=== PATIENT | female | born 1965 | race Two or more races ===

== ENCOUNTER 2025-01-16 21:12 | Inpatient (IN) | payer MEDICAID, OTHER ==
[~2025-01-16] VITALS: Ht 152.4 cm; Wt 120.1 kg
[2025-01-16] MEDS ORDERED: HYDR12.54 PO (22:06)
[2025-01-16] MEDS ORDERED: LISI40TA9 PO (22:06)
[2025-01-16] MEDS: HydrALAZINE HCL 20 MG/ML VIAL IVP ONE (22:28)
[2025-01-16 22:45] LABS: BASOPHILS % (AUTO) 0.8 % (0.0-2.0); EOSINOPHILS % (AUTO) 3.7 % (1.0-6.0); HEMATOCRIT 36.3 % (36-46); LYMPHOCYTES # (AUTO) 1.9 K/uL (1.0-4.8); LYMPHOCYTES % (AUTO) 37.8 % (22.0-44.0); MEAN CORPUSCULAR VOLUME 88 fL (80-100); MONOCYTES # (AUTO) 0.4 K/uL (0.1-1.0); MONOCYTES % (AUTO) 7.3 % (2.0-9.0); NEUTROPHILS # (AUTO) 2.6 K/uL (1.8-7.7); NEUTROPHILS % (AUTO) 50.4 % (40.0-70.0); PLATELET COUNT (AUTO) 262 K/uL (150-450); RED BLOOD CELL COUNT(AUTO) 4.13 MIL/uL (4.00-5.20); RED CELL DISTRIBUTION WIDTH 13.7 % (11.5-14.5); WHITE BLOOD COUNT (AUTO) 5.1 K/uL (4.5-11.0)
[2025-01-16 22:53] LABS: B-TYPE NATRIURETIC PEPTIDE 167 pg/mL (0-100)
[2025-01-16 22:59] LABS: ANION GAP 3 mmol/L (8-16); CALCIUM, TOTAL 8.4 mg/dL (8.8-10.5); CARBON DIOXIDE 34 mmol/L (22-29); CHLORIDE 104 mmol/L (98-107); CREATININE 1.37 mg/dL (0.60-1.30); GLOMERULAR FILTR. RATE CALC 39 mL/min (>60); GLUCOSE,RANDOM 98 mg/dL (70-110); POTASSIUM 3.8 mmol/L (3.5-5.1); SODIUM SERUM 141 mmol/L (136-145); UREA NITROGEN, BLOOD 24 mg/dL (7-18)
[2025-01-16] MEDS: ACETAMINOPHEN 500 MG TABLET PO ONE (23:01)
[2025-01-16] MEDS: CefTRIAXone 1 GM/DEXTROSE 50 ML IV ONE (23:02)
[2025-01-16 23:11] LABS: ALANINE AMINOTRANSFERASE 18 U/L (12-78); ALBUMIN 1.4 g/dL (3.4-5.0); ALKALINE PHOSPHATASE 73 U/L (46-116); ASPARTATE AMINOTRANSFERASE 24 U/L (15-37); BILIRUBIN,TOTAL 0.2 mg/dL (0.1-1.0); CREATINE KINASE, TOTAL ONLY 137 U/L (26-192); TOTAL PROTEIN, SERUM 5.9 g/dL (6.4-8.2); TROPONIN I-HIGH SENSITIVITY 19 ng/L (<51)
[2025-01-16] MEDS ORDERED: ONDANSETRON HCL 4 MG/2 ML VIAL IVP PRN (23:30)
[2025-01-16] MEDS: HEPARIN SODIUM,PORCINE 5,000 UNITS/ML VIAL SQ SCH (23:37)
[2025-01-16] MEDS: ISOSORBIDE DINITRATE 10 MG TABLET PO SCH (23:38)
[2025-01-16] MEDS: AZITHROMYCIN 500 MG/NS 250 ML IV ONE (23:38)
[2025-01-16] MEDS: LABETALOL HCL 100 MG TABLET PO SCH (23:39)
[2025-01-16 23:46] LABS: APPEARANCE,URINE CLEAR (CLEAR); BILIRUBIN,URINE NEGATIVE (NEGATIVE); COLOR,URINE COLORLESS (YELLOW); GLUCOSE, URINE (UA) TRACE mg/dL (NEGATIVE); KETONES,URINE NEGATIVE (NEGATIVE); LEUKOCYTE ESTERASE ,URINE NEGATIVE (NEGATIVE); NITRATE,URINE NEGATIVE (NEGATIVE); OCCULT BLOOD,URINE MODERATE (NEGATIVE); PROTEIN,URINE >600,SEE CONFIRM mg/dL (NEGATIVE); UROBILINOGEN,URINE <=1.0 mg/dL (<=1.0)
[2025-01-17] VITALS (7 sets, daily range): BP systolic 113–143; BP diastolic 65–94; PULSE 67–86; RESP 18–20; TEMP 97–98.6; O2SAT 94–99
[2025-01-17 00:30] LABS: BACTERIA,URINE Few /HPF (None Seen); SQUAMOUS EPITHELIAL CELL,UR Few /LPF (None Seen); SULFOSALICYLIC ACID,URINE 2+ (Negative); WBC,URINE 0-2 /HPF (0-5)
[2025-01-17] MEDS: FUROSEMIDE 20 MG/2 ML VIAL IVP ONE (01:15)
[2025-01-17 06:30] LABS: EOSINOPHILS % (AUTO) 1.2 % (1.0-6.0); HEMATOCRIT 33.6 % (36-46); HEMOGLOBIN 11.1 g/dL (12.0-16.0); LYMPHOCYTES # (AUTO) 1.2 K/uL (1.0-4.8); MEAN CORPUSCULAR HEMOGLOBIN 29.3 pg (26.0-34.0); MEAN CORPUSCULAR VOLUME 89 fL (80-100); MONOCYTES # (AUTO) 0.2 K/uL (0.1-1.0); MONOCYTES % (AUTO) 3.9 % (2.0-9.0); NEUTROPHILS # (AUTO) 3.6 K/uL (1.8-7.7); NEUTROPHILS % (AUTO) 70.9 % (40.0-70.0); PLATELET COUNT (AUTO) 253 K/uL (150-450); RED BLOOD CELL COUNT(AUTO) 3.79 MIL/uL (4.00-5.20); RED CELL DISTRIBUTION WIDTH 13.7 % (11.5-14.5); WHITE BLOOD COUNT (AUTO) 5.1 K/uL (4.5-11.0)
[2025-01-17 06:49] LABS: CALCIUM, TOTAL 7.9 mg/dL (8.8-10.5); CREATININE 1.21 mg/dL (0.60-1.30); MAGNESIUM 2.1 mg/dL (1.80-2.40); POTASSIUM 3.4 mmol/L (3.5-5.1)
[2025-01-17] MEDS: ACETAMINOPHEN 325 MG TABLET PO PRN (08:29)
[2025-01-17] MEDS: AZITHROMYCIN 250 MG TABLET PO SCH (11:39)
[2025-01-17] MEDS: POTASSIUM CHLORIDE 20 MEQ ER TABLET PO ONE (14:31)
[2025-01-17] MEDS ORDERED: POTASSIUM CHL 10 MEQ/WATER 50 ML IV PRN (20:15)
[2025-01-17] MEDS: LISINOPRIL 20 MG TABLET PO SCH (20:25)
[2025-01-17] MEDS: POTASSIUM CHLORIDE 20 MEQ ER TABLET PO PRN (20:25)
[2025-01-17] MEDS ORDERED: SODIUM CHLORIDE 0.9% 250 ML IV ONE (22:52)
[2025-01-17] MEDS: CefTRIAXone 1 GM/DEXTROSE 50 ML IV SCH (23:41)
[2025-01-18 03:49] VITALS: BP 147/76; PULSE 68; RESP 18; TEMP 98; O2SAT 95
[2025-01-18 04:07] LABS: HEPATITIS C AB (EIA) Non Reactive (Non Reactive)
[2025-01-18 07:23] LABS: BASOPHILS % (AUTO) 0.8 % (0.0-2.0); EOSINOPHILS % (AUTO) 3.8 % (1.0-6.0); HEMATOCRIT 34.5 % (36-46); HEMOGLOBIN 11.3 g/dL (12.0-16.0); LYMPHOCYTES # (AUTO) 1.7 K/uL (1.0-4.8); LYMPHOCYTES % (AUTO) 35.2 % (22.0-44.0); MEAN CORPUSCULAR HEMOGLOBIN 28.8 pg (26.0-34.0); MEAN CORPUSCULAR HGB CONC 32.7 G/dL (31.0-37.0); MEAN CORPUSCULAR VOLUME 88 fL (80-100); MONOCYTES # (AUTO) 0.3 K/uL (0.1-1.0); MONOCYTES % (AUTO) 6.3 % (2.0-9.0); NEUTROPHILS # (AUTO) 2.5 K/uL (1.8-7.7); NEUTROPHILS % (AUTO) 53.9 % (40.0-70.0); PLATELET COUNT (AUTO) 236 K/uL (150-450); RED BLOOD CELL COUNT(AUTO) 3.91 MIL/uL (4.00-5.20); RED CELL DISTRIBUTION WIDTH 14.2 % (11.5-14.5); WHITE BLOOD COUNT (AUTO) 4.7 K/uL (4.5-11.0)
[2025-01-18 07:33] VITALS: BP 147/76; PULSE 71; RESP 19; TEMP 98.1; O2SAT 94
[2025-01-18 07:55] LABS: ANION GAP 7 mmol/L (8-16); CARBON DIOXIDE 27 mmol/L (22-29); CHLORIDE 107 mmol/L (98-107); CHOL/HDL RATIO 5.2 (3.9-5.7); CHOLESTEROL 233 mg/dL (131-200); CREATININE 1.11 mg/dL (0.60-1.30); GLOMERULAR FILTR. RATE CALC 50 mL/min (>60); GLUCOSE,RANDOM 97 mg/dL (70-110); HDL CHOLESTEROL 45 mg/dL (40-60); LDL CHOL (CALC.) 135 mg/dL (0-130); POTASSIUM 3.8 mmol/L (3.5-5.1); SODIUM SERUM 141 mmol/L (136-145); TRIGLYCERIDES 263 mg/dL (15-150); TROPONIN I-HIGH SENSITIVITY 19 ng/L (<51); UREA NITROGEN, BLOOD 23 mg/dL (7-18)
[2025-01-18 08:01] LABS: HEMOGLOBIN A1C 5.6 % (3.8-5.6)
[2025-01-18] MEDS: ASPIRIN 81 MG DR TABLET PO SCH (08:21)
[2025-01-18] MEDS: AmLODIPine BESYLATE 5 MG TABLET PO SCH (10:02)
[2025-01-18] MEDS: ATORVASTATIN CALCIUM 40 MG TABLET PO SCH (10:02)
[2025-01-18 11:33] VITALS: BP 187/86; PULSE 81; RESP 19; TEMP 98.4; O2SAT 94
[2025-01-18] MEDS: HydrALAZINE HCL 20 MG/ML VIAL IVP PRN (11:33)
[2025-01-18] MEDS ORDERED: ACET650S24 PR (13:12)
[2025-01-18] MEDS ORDERED: ACET-2247 PO (13:13)
[2025-01-18] MEDS ORDERED: ATOR20TA PO (13:14)
[2025-01-18] MEDS ORDERED: ASPI-1450 PO (13:14)
[2025-01-18] MEDS ORDERED: CALC-761 PO (13:16)
[2025-01-18] MEDS ORDERED: CLOP75TA60 PO (13:16)
[2025-01-18] MEDS ORDERED: CRAN425C6 PO (13:18)
[2025-01-18] MEDS ORDERED: BISA10SU11 PR (13:19)
[2025-01-18] MEDS ORDERED: FERR220E10 PO (13:21)
[2025-01-18] MEDS ORDERED: LACT1CAP70 PO (13:26)
[2025-01-18] MEDS ORDERED: METO25 PO (13:30)
[2025-01-18] MEDS ORDERED: LACT10SO9 PO (13:30)
[2025-01-18] MEDS ORDERED: LANS15TA13 PO (13:31)
[2025-01-18] MEDS ORDERED: EPOE10006 IVP (13:33)
[2025-01-18] MEDS ORDERED: PANT-31 PO (13:36)
[2025-01-18] MEDS ORDERED: FOLI0.8T54 PO (13:36)
[2025-01-18] MEDS ORDERED: SENN-376 PO (13:38)
[2025-01-18] MEDS ORDERED: SODI650T33 PO (13:40)
[2025-01-18 16:02] VITALS: BP 139/80; PULSE 75; RESP 18; TEMP 98.1; O2SAT 97
[2025-01-18 19:38] VITALS: BP 149/70; PULSE 78; RESP 19; TEMP 98.3; O2SAT 97
[2025-01-18 23:16] VITALS: BP 126/64; PULSE 76; RESP 19; TEMP 98.3; O2SAT 93
[2025-01-19 03:15] VITALS: BP 135/72; PULSE 71; RESP 18; TEMP 98.1; O2SAT 96
[2025-01-19 05:48] LABS: BASOPHILS % (AUTO) 1.2 % (0.0-2.0); EOSINOPHILS % (AUTO) 5.3 % (1.0-6.0); HEMATOCRIT 34.6 % (36-46); HEMOGLOBIN 11.5 g/dL (12.0-16.0); LYMPHOCYTES # (AUTO) 1.4 K/uL (1.0-4.8); MEAN CORPUSCULAR HEMOGLOBIN 29.5 pg (26.0-34.0); MEAN CORPUSCULAR HGB CONC 33.2 G/dL (31.0-37.0); MEAN CORPUSCULAR VOLUME 89 fL (80-100); MONOCYTES # (AUTO) 0.3 K/uL (0.1-1.0); MONOCYTES % (AUTO) 7.2 % (2.0-9.0); NEUTROPHILS % (AUTO) 50.3 % (40.0-70.0); PLATELET COUNT (AUTO) 238 K/uL (150-450); RED CELL DISTRIBUTION WIDTH 14.3 % (11.5-14.5); WHITE BLOOD COUNT (AUTO) 3.9 K/uL (4.5-11.0)
[2025-01-19 06:02] LABS: CALCIUM, TOTAL 8.3 mg/dL (8.8-10.5); CREATININE 1.07 mg/dL (0.60-1.30)
[2025-01-19 08:00] VITALS: BP 175/89; PULSE 96; RESP 18; TEMP 98.1; O2SAT 96
[2025-01-19 11:59] VITALS: BP 145/87; PULSE 68; RESP 19; TEMP 98.2; O2SAT 99
[2025-01-19] MEDS ORDERED: AMLO-257 PO (13:17)
[2025-01-19] MEDS ORDERED: AMOX-457 PO (13:17)
== END 2025-01-19 14:15 | disposition home or self-care (01) | DRG 194 ==
LOC: EMS 21:12 → EDH 01-17 00:41 → 5N 01-17 01:58
PROVIDERS: ADMIT Internal Medicine; ATTEND Internal Medicine
DX: I13.0 Hypertensive heart and chronic kidney disease with heart failure and stage 1 through stage 4 chronic kidney disease, or unspecified chronic kidney disease (principal); N17.9 Acute kidney failure, unspecified; J15.69 Pneumonia due to other Gram-negative bacteria; Z68.43 Body mass index [BMI] 50.0-59.9, adult; I16.1 Hypertensive emergency; I50.33 Acute on chronic diastolic (congestive) heart failure; E66.01 Morbid (severe) obesity due to excess calories; G47.33 Obstructive sleep apnea (adult) (pediatric); E87.6 Hypokalemia; E78.5 Hyperlipidemia, unspecified; N18.9 Chronic kidney disease, unspecified; Z79.899 Other long term (current) drug therapy
CPT/HCPCS: 70450; 71045; 80048; 80061; 80076; 81001; 81002; 82550; 83036; 83735; 83880; 84132; 84443; 84484; 85025; 86803; 87340; 93005; 93306; 99291; J0360; J0456; J0696; J1644; J1940; J7050; 36415-L1; 36415-TC